=== PATIENT | female | born 1990 | race African-American/Black ===

== ENCOUNTER 2017-01-21 09:56 | Day surgery (SDC) | payer BC ==
[2017-01-17 12:21] VITALS: BMI 31.6
[2017-01-21] MEDS ORDERED: MIDAZOLAM HCL 2 MG/2 ML SINGLE DOSE VIAL ONE (10:19)
[2017-01-21] MEDS ORDERED: PROPOFOL 20 ML ONE (10:20)
[2017-01-21] MEDS ORDERED: LIDOCAINE HCL/PF 2% SDV 5ML VIAL ONE (10:22)
--- NOTE | 2017-01-21 11:04 | HP ---
Satellite [facility] - Past Medical History Allergies/Adverse Reactions: Allergies Allergy/AdvReac Type Severity Reaction Status Date / Time No Known Allergies Allergy Verified 01/17/17 12:15 ...LMP: 05/11/16 ...LMP Comment: on depo shot - Current Medications Current Medications: Home Medications Medication Instructions Recorded NK [No Known Home Medication] 01/17/17 Satellite Physical Exam - Physical Examination Vital Signs: Vital Signs Period Temp Pulse Resp BP Sys/Pérez Pulse Ox Last 24 Hr 98.6 F 86 16 127/58 100 [facility] Impression/Plan - Impression/Plan Operative Procedure: mid urethral sling placement Date to be Performed: 01/21/17
[2017-01-21] MEDS ORDERED: VASOPRESSIN 20 UNITS/ML VIAL IV ONE (11:07)
[2017-01-21] MEDS ORDERED: ceFAZolin SODIUM 1 GM VIAL IVPB ONE (11:25)
[2017-01-21] MEDS ORDERED: ceFAZolin SODIUM 1 GM VIAL ONE (11:35)
[2017-01-21] MEDS ORDERED: DEXAMETHASONE SOD PHOSPHATE 4 MG/1 ML VIAL ONE (11:36)
[2017-01-21] MEDS ORDERED: KETOROLAC TROMETHAMINE 30 MG/1 ML VIAL ONE (11:36)
[2017-01-21] MEDS ORDERED: HYDROmorphone HCL/PF 1 MG/ML VIAL (FOR PYXIS CHARGING ONLY) ONE ×2 (11:41→11:50)
--- NOTE | 2017-01-21 12:13 | OP ---
Operative Note - Note: Operative Date: 01/21/17 Pre-Operative Diagnosis: stress incontinence Operation: Mid urethral sling placement Post-Operative Diagnosis: Same as Pre-op Surgeon: Erlin Smith MD. Anesthesia: MAC Estimated Blood Loss (mls): 100 Drains & Tubes with Location: [place] to sd Operative Report Dictated: Yes
[2017-01-21] MEDS ORDERED: ONDANSETRON 4 MG/2 ML VIAL IVPUSH PRN (12:32)
[2017-01-21] MEDS ORDERED: oxyCODONE HCL 5 MG TABLET PO PRN (12:32)
[2017-01-21] MEDS ORDERED: LACTATED RINGERS SOLUTION 1,000 ML IV SCH (12:45)
[2017-01-21 14:55] VITALS: TEMP 98.8
[2017-01-21 16:51] VITALS: BP 117/66; PULSE 86
== END 2017-01-21 15:35 | disposition home or self-care (01) ==
LOC: JASU-SURG 09:56
PROVIDERS: ATTEND Urology
PROC: 0TSD0ZZ Reposition Urethra, Open Approach (ICD-10-PCS; principal; 2017-01-21 11:00)
DX: N39.3 Stress incontinence (female) (male) (principal)
CPT/HCPCS: 84703; 94760